=== PATIENT | male | born 1995 | race Caucasian/White ===

== ENCOUNTER → 2018-10-26 | Emergency (ER) | payer OTHER ==
[~2018-10-26] VITALS: Ht 177.8 cm; Wt 68.0 kg
[~2018-10-26] MED LIST: HYDROCODONE/APAP 5/325MG 1 EACH TABLET ONE; HYDROCODONE/APAP 5/325MG 1 EACH TABLET PO ONE; KETOROLAC TROMETHAMINE INJ 30 MG/ML VIAL IM ONE; KETOROLAC TROMETHAMINE INJ 30 MG/ML VIAL ONE; LIDOCAINE VISCOUS 2% UD 15 ML UDC MM ONE; LIDOCAINE VISCOUS 2% UD 15 ML UDC ONE
[2018-10-26 07:35] VITALS: BP 136/85
== END | disposition home or self-care (01) ==
LOC: ER 07:36
DX: J03.80 Acute tonsillitis due to other specified organisms (principal); B96.89 Other specified bacterial agents as the cause of diseases classified elsewhere; R03.0 Elevated blood-pressure reading, without diagnosis of hypertension; R59.0 Localized enlarged lymph nodes
CPT/HCPCS: 96372; 99283; J1885

== ENCOUNTER 2023-01-27 07:02 | Emergency (ER) | payer MEDICAID ==
[~2023-01-27] VITALS: Ht 177.8 cm; Wt 68.0 kg
[2023-01-27 07:20] VITALS: BP 131/66; TEMP 98.9; O2SAT 98
[2023-01-27] MEDS ORDERED: NEOM10DR11 EACH EAR (07:34)
[2023-01-27] MEDS ORDERED: AMOX500C2 PO (07:34)
== END 2023-01-27 07:41 | disposition home or self-care (01) ==
LOC: ER 07:07
DX: H66.92 Otitis media, unspecified, left ear (principal)